=== PATIENT | male | born 1985 | race Caucasian/White ===

== ENCOUNTER 2016-08-31 18:37 | Emergency (ER) | payer SELFPAY ==
[2016-08-31 18:51] VITALS: BP 129/74; PULSE 89; RESP 20
[2016-08-31] MEDS ORDERED: PROPARACAINE 0.5% OPHTH DROPS 15 ML BTL LEFT EYE STA (19:10)
--- NOTE | 2016-08-31 19:32 | ED ---
Eye Problem HPI - General Chief complaint: Eye Problems Stated complaint: eye pain Time Seen by Provider: 08/31/16 18:53 Source: patient Mode of arrival: ambulatory Limitations: no limitations - History of Present Illness Initial comments: 31-year-old male patient presents to the emergency department today for evaluation of left eye symptoms that started Saturday after a flight from [place]. Patient is complaining of eye redness, and photophobia. Patient states that whenever he looks into the light it causes a sharp pain and feels like there is a lot of pressure in the eye. Patient denies any eye irritation, pain with blinking, or eye drainage. Patient states that today he began having some fogging of the vision in the left eye. He denies any blurred or double vision. Eyes any headaches, dizziness, or weakness. He denies any shortness of breath , chest pain, abdominal pain, nausea, vomiting, fevers, or chills. Patient does currently have an upper respiratory tract infection with symptoms of cough and nasal drainage that he has had since Saturday. - Related Data Home Medications Medication Instructions Recorded Confirmed No Known Home Medications [No 08/31/16 08/31/16 Known Home Medications] Allergies Allergy/AdvReac Type Severity Reaction Status Date / Time No Known Allergies Allergy Verified 08/31/16 19:15 Review of Systems ROS Statement: Those systems with pertinent positive or pertinent negative responses have been documented in the HPI. ROS Other: All systems not noted in ROS Statement are negative. Past Medical History Past Medical History: No Reported History History of Any Multi-Drug Resistant Organisms: None Reported Past Surgical History: No Surgical Hx Reported Past Psychological History: No Psychological Hx Reported Smoking Status: Former smoker Past Alcohol Use History: Occasional Past Drug Use History: None Reported General Exam Limitations: no limitations, language barrier (Patient's primary language is Wallisian) General appearance: alert, in no apparent distress Head exam: Present: atraumatic, normocephalic, normal inspection Eye exam: Present: normal appearance, PERRL, EOMI, conjunctival injection. Absent: scleral icterus, nystagmus, periorbital swelling, periorbital tenderness Pupils: Present: normal accommodation. Absent: irregular, unequal, miosis, mydriatic Expanded Eyelids: Normal Inspection: Bilateral Pupils: Regular, Round: Bilateral, Reactive: Bilateral Sclera/Conjunctival: Injection: Bilateral Visual acuity (R) = 20/: 50 Visual acuity (L) = 20/: 30 With correction: No IOP (L) in mmH IOP measured with: [facility] ENT exam: Present: normal exam, normal oropharynx, mucous membranes moist, TM's normal bilaterally. Absent: mucous membranes dry Neck exam: Present: normal inspection, full ROM. Absent: tenderness, meningismus, lymphadenopathy Respiratory exam: Present: normal lung sounds bilaterally. Absent: respiratory distress, wheezes, rales, rhonchi Cardiovascular Exam: Present: regular rate, normal rhythm. Absent: bradycardia , tachycardia, irregular rhythm, normal heart sounds, systolic murmur, diastolic murmur, rubs, gallop, clicks GI/Abdominal exam: Present: soft, normal bowel sounds. Absent: distended, tenderness, guarding, rebound, rigid Extremities exam: Present: normal inspection, normal capillary refill Neurological exam: Present: oriented X3 Psychiatric exam: Present: normal affect, normal mood Skin exam: Present: warm, dry, intact Course Vital Signs 08/31/16 18:46 Temperature 97.9 F Pulse Rate 89 Respiratory 20 Rate Blood Pressure 129/74 O2 Sat by Pulse 98 Oximetry Medical Decision Making - Medical Decision Making 31-year-old male patient presented today for complaints of left eye discomfort and redness 5 days. Fluorescein stain and tonometry were performed in emergency Department without any remarkable findings. Visual acuity is satisfactory. This is suspected conjunctivitis and patient will be treated with antibiotic eyedrops as an outpatient. Since patient is from out of town and he will be given directions to follow up with anime designer on Saturday if his symptoms aren't improved. Patient verbalizes understanding of and agrees with this plan. Disposition Clinical Impression: Conjunctivitis Disposition: HOME SELF-CARE Condition: Stable Instructions: Conjunctivitis (ED) Additional Instructions: Put 2 drops to the left eye every four hours. Return immediately for any visual changes, increasing pain, or any other concerning symptoms. Follow-up with anime designer on Saturday if symptoms have not improved. Referrals: None,Stated [Primary Care Provider] - 1-2 days Suman Kelly MD [STAFF PHYSICIAN] - 1-2 days Time of Disposition: 19:45
[2016-08-31] MEDS ORDERED: TOBRAMYCIN 0.3% OPHTH DROPS 5 ML BTL LEFT EYE STA (19:45)
[2016-08-31 20:03] VITALS: TEMP 98
== END 2016-08-31 19:57 | disposition home or self-care (01) ==
LOC: EC 18:37
DX: H10.9 Unspecified conjunctivitis (principal); Z87.891 Personal history of nicotine dependence
CPT/HCPCS: 99282